=== PATIENT | female | born 1995 | race Hispanic/Latino ===

== ENCOUNTER 2017-10-24 16:07 | Emergency (ER) | payer OTHER ==
[~2017-10-24] VITALS: Ht 154.9 cm; Wt 66.0 kg
[~2017-10-24 16:07] MED LIST: CEPHALEXIN500 MG PO; FERR SULFATE325 MG PO; IBUPROFEN600 MG PO; NORCO1 TA1 PO; PRE-NATAL PO; TYLENOL325 MG PO; [UNRECOGNIZED DRUG - OTHER] EX
[2017-10-24 17:40] LABS: HEMATOCRIT 41.9 % (37.0-47.0); HEMOGLOBIN 14.5 g/dl (12.0-16.0); IMMATURE GRANULOCYTES 0.1 % (0.0-1.0); MEAN CORPUSCULAR HGB 32.9 pG CALC (26.0-32.0); MEAN CORPUSCULAR HGB CONC 34.6 g/L CALC (32.0-36.0); NEUT# 5.27 thou/uL (2.00-7.15); RED BLOOD COUNT 4.41 mill/uL (4.20-5.60); RED CELL DISTRI WIDTH 13.1 % (11.5-15.5)
[2017-10-24 17:43] LABS: URINE BILIRUBIN - DIPSTICK NEGATIVE (NEGATIVE); URINE BLOOD DIPSTICK MODERATE (NEGATIVE); URINE COLOR YELLOW; URINE GLUCOSE - DIPSTICK NEGATIVE (NEGATIVE); URINE KETONE NEGATIVE (NEGATIVE); URINE NITRITE - DIPSTICK NEGATIVE (Negative); URINE PROTEIN - DIPSTICK NEGATIVE (NEG-TRACE); URINE SPECIFIC GRAVITY >=1.030; URINE UROBILINOGEN - DIPSTICK 0.2 E.U./dL (0.2)
[2017-10-24 17:46] LABS: URINE CLARITY HAZY; URINE LEUK ESTERASE SMALL (NEGATIVE)
[2017-10-24 17:55] LABS: URINE SQUAMOUS EPITHELIAL CELL MODERATE EPI/hpf (0-FEW)
[2017-10-24 17:58] LABS: ALBUMIN 4.5 g/dL (3.2-5.0); ALKALINE PHOSPHATASE 138 u/l (38-126); ANION GAP 17 (6-22 (CALC)); BILIRUBIN, TOTAL 0.5 mg/dL (0.0-1.4); BUN 13 mg/dL (7-17); BUN/CREATININE RATIO 18 (12-20 (CALC)); CALCIUM 9.4 mg/dL (8.4-10.2); CARBON DIOXIDE 20 mmol/l (22-30); CHLORIDE 109 mmol/l (95-108); CREATININE 0.7 mg/dL (0.5-1.0); GFR > 60 ML/MIN (>=60 (CALC)); GFR FOR AFR.AMER. > 60 ML/MIN (>=60 (CALC)); GLUCOSE 91 mg/dL (65-105); POTASSIUM 3.6 mmol/l (3.5-5.1); SGOT/AST 29 u/l (14-36); SGPT/ALT 54 u/l (9-52); SODIUM 142 mmol/l (137-146); TOTAL PROTEIN 7.9 g/dL (6.3-8.2)
[2017-10-24] MEDS ORDERED: MACROBID100 MG PO (18:05)
[2017-10-24] MEDS ORDERED: MOTRIN800 MG PO (18:05)
[2017-10-24 19:37] VITALS: BP 116/73
== END 2017-10-24 19:38 | disposition home or self-care (01) | DRG 392 ==
LOC: ED 16:07
PROVIDERS: Emergency Medicine
DX: R10.31 Right lower quadrant pain (principal); N39.0 Urinary tract infection, site not specified

== ENCOUNTER 2017-12-02 12:35 | Emergency (ER) | payer OTHER ==
[~2017-12-02] VITALS: Ht 154.9 cm; Wt 66.4 kg
[~2017-12-02 12:35] MED LIST changes: +MACROBID100 MG PO; +MOTRIN800 MG PO
[2017-12-02 13:37] LABS: URINE BILIRUBIN - DIPSTICK NEGATIVE (NEGATIVE); URINE BLOOD DIPSTICK MODERATE (NEGATIVE); URINE COLOR YELLOW; URINE GLUCOSE - DIPSTICK NEGATIVE (NEGATIVE); URINE KETONE NEGATIVE (NEGATIVE); URINE NITRITE - DIPSTICK NEGATIVE (Negative); URINE PH 5.5 (4.5-8.0); URINE PROTEIN - DIPSTICK 30 mg/dL (NEG-TRACE); URINE SPECIFIC GRAVITY >=1.030; URINE UROBILINOGEN - DIPSTICK 0.2 E.U./dL (0.2)
[2017-12-02 13:38] LABS: URINE LEUK ESTERASE MODERATE (NEGATIVE)
[2017-12-02 13:39] LABS: HEMATOCRIT 41.6 % (37.0-47.0); HEMOGLOBIN 14.5 g/dl (12.0-16.0); IMMATURE GRANULOCYTES 0.2 % (0.0-1.0); MEAN CELL VOLUME 94.8 fL CALC (80.0-100.0); MEAN CORPUSCULAR HGB CONC 34.9 g/L CALC (32.0-36.0); NEUT# 7.95 thou/uL (2.00-7.15); RED BLOOD COUNT 4.39 mill/uL (4.20-5.60); RED CELL DISTRI WIDTH 12.9 % (11.5-15.5)
[2017-12-02 13:41] LABS: URINE BACTERIA FEW hpf; URINE CLARITY CLOUDY; URINE EPITHELIAL CELLS MODERATE EPI/hpf (0-FEW)
[2017-12-02 13:55] LABS: ALBUMIN 4.5 g/dL (3.2-5.0); ALKALINE PHOSPHATASE 150 u/l (38-126); ANION GAP 18 (6-22 (CALC)); BILIRUBIN, TOTAL 0.7 mg/dL (0.0-1.4); BUN 5 mg/dL (7-17); BUN/CREATININE RATIO 8 (12-20 (CALC)); CALCIUM 9.8 mg/dL (8.4-10.2); CARBON DIOXIDE 20 mmol/l (22-30); CHLORIDE 108 mmol/l (95-108); CREATININE 0.6 mg/dL (0.5-1.0); GFR > 60 ML/MIN (>=60 (CALC)); GFR FOR AFR.AMER. > 60 ML/MIN (>=60 (CALC)); GLUCOSE 95 mg/dL (65-105); LIPASE 74 u/l (23-300); POTASSIUM 3.5 mmol/l (3.5-5.1); SGOT/AST 53 u/l (14-36); SGPT/ALT 67 u/l (9-52); SODIUM 142 mmol/l (137-146); TOTAL PROTEIN 8.1 g/dL (6.3-8.2)
[2017-12-02] MEDS ORDERED: MOTRIN400 MG PO (17:24)
[2017-12-02 17:40] VITALS: BP 119/82
== END 2017-12-02 17:40 | disposition home or self-care (01) | DRG 556 ==
LOC: ED 12:35
PROVIDERS: Family Medicine
DX: M25.531 Pain in right wrist (principal); R10.32 Left lower quadrant pain; R10.31 Right lower quadrant pain; M25.512 Pain in left shoulder; M25.532 Pain in left wrist; M25.571 Pain in right ankle and joints of right foot; M54.2 Cervicalgia; M54.5 Low back pain; M79.604 Pain in right leg; M25.552 Pain in left hip; V49.49XA Driver injured in collision with other motor vehicles in traffic accident, initial encounter; Y92.488 Other paved roadways as the place of occurrence of the external cause; Y93.I9 Activity, other involving external motion

== ENCOUNTER 2018-05-19 15:29 | Emergency (ER) | payer BC ==
[~2018-05-19] VITALS: Ht 154.9 cm; Wt 54.0 kg
[~2018-05-19 15:29] MED LIST changes: +MOTRIN400 MG PO
[2018-05-19 16:04] LABS: URINE BILIRUBIN - DIPSTICK NEGATIVE (NEGATIVE); URINE BLOOD DIPSTICK LARGE (NEGATIVE); URINE COLOR YELLOW; URINE GLUCOSE - DIPSTICK NEGATIVE (NEGATIVE); URINE KETONE NEGATIVE (NEGATIVE); URINE NITRITE - DIPSTICK NEGATIVE (Negative); URINE PROTEIN - DIPSTICK NEGATIVE (NEG-TRACE); URINE UROBILINOGEN - DIPSTICK 0.2 E.U./dL (0.2)
[2018-05-19 16:17] LABS: URINE CLARITY CLOUDY; URINE LEUK ESTERASE LARGE (NEGATIVE)
[2018-05-19 16:18] LABS: URINE RBC 25-50 RBC/hpf (0-5)
[2018-05-19 16:19] LABS: URINE BACTERIA MANY hpf; URINE EPITHELIAL CELLS MANY EPI/hpf (0-FEW); URINE WBC 20-50 WBC/hpf (0-5)
[2018-05-19] MEDS ORDERED: KEFLEX500 M1 PO (16:42)
[2018-05-19 16:45] VITALS: BP 135/85
== END 2018-05-19 16:45 | disposition home or self-care (01) | DRG 781 ==
LOC: ED 15:29
DX: O23.41 Unspecified infection of urinary tract in pregnancy, first trimester (principal); Z3A.01 Less than 8 weeks gestation of pregnancy

== ENCOUNTER 2018-07-07 21:15 | Emergency (ER) | payer BC ==
[~2018-07-07] VITALS: Ht 154.9 cm; Wt 70.0 kg
[~2018-07-07 21:15] MED LIST changes: +KEFLEX500 M1 PO
[2018-07-07 21:56] LABS: HEMATOCRIT 36.5 % (37.0-47.0); HEMOGLOBIN 13.2 g/dl (12.0-16.0); IMMATURE GRANULOCYTES 0.3 % (0.0-5.0); MEAN CELL VOLUME 92.6 fL CALC (80.0-100.0); MEAN CORPUSCULAR HGB 33.5 pG CALC (26.0-32.0); MEAN CORPUSCULAR HGB CONC 36.2 g/L CALC (32.0-36.0); NEUT# 6.88 thou/uL (2.00-7.15); RED BLOOD COUNT 3.94 mill/uL (4.20-5.60); RED CELL DISTRI WIDTH 12.5 % (11.5-15.5)
[2018-07-07 22:00] LABS: URINE BILIRUBIN - DIPSTICK NEGATIVE (NEGATIVE); URINE BLOOD DIPSTICK LARGE (NEGATIVE); URINE COLOR YELLOW; URINE GLUCOSE - DIPSTICK NEGATIVE (NEGATIVE); URINE KETONE TRACE mg/dL (NEGATIVE); URINE NITRITE - DIPSTICK NEGATIVE (Negative); URINE PROTEIN - DIPSTICK TRACE mg/dL (NEG-TRACE); URINE SPECIFIC GRAVITY >=1.030; URINE UROBILINOGEN - DIPSTICK 0.2 E.U./dL (0.2)
[2018-07-07 22:12] LABS: URINE LEUK ESTERASE MODERATE (NEGATIVE)
[2018-07-07 22:13] LABS: URINE CLARITY CLOUDY
[2018-07-07 22:14] LABS: ALBUMIN 3.7 g/dL (3.2-5.0); ALKALINE PHOSPHATASE 81 u/l (38-126); ANION GAP 16 (6-22 (CALC)); BILIRUBIN, TOTAL 0.2 mg/dL (0.0-1.4); BUN 8 mg/dL (7-17); BUN/CREATININE RATIO 14 (12-20 (CALC)); CARBON DIOXIDE 21 mmol/l (22-30); CHLORIDE 106 mmol/l (95-108); CREATININE 0.6 mg/dL (0.5-1.0); GFR > 60 ML/MIN (>=60 (CALC)); GFR FOR AFR.AMER. > 60 ML/MIN (>=60 (CALC)); POTASSIUM 3.6 mmol/l (3.5-5.1); SGOT/AST 29 u/l (14-36); SGPT/ALT 45 u/l (9-52); SODIUM 140 mmol/l (137-146)
[2018-07-07 22:22] LABS: URINE RBC TNTC RBC/hpf (0-5); URINE WBC 20-50 WBC/hpf (0-5)
[2018-07-07 22:23] LABS: URINE BACTERIA FEW hpf; URINE EPITHELIAL CELLS FEW EPI/hpf (0-FEW)
[2018-07-07 22:59] LABS: BETA-HCG, QUANT(RESULT NUMBER) 41648 mIU/mL
[2018-07-08] MEDS ORDERED: KEFLEX500 M1 PO (02:22)
[2018-07-08 02:42] VITALS: BP 110/60
== END 2018-07-08 02:30 | disposition home or self-care (01) | DRG 781 ==
LOC: ED 21:15
PROVIDERS: Emergency Medicine
DX: O23.41 Unspecified infection of urinary tract in pregnancy, first trimester (principal); O41.8X10 Other specified disorders of amniotic fluid and membranes, first trimester, not applicable or unspecified; Z3A.11 11 weeks gestation of pregnancy

== ENCOUNTER 2022-05-14 16:40 | Emergency (ER) | payer MEDICAID ==
[~2022-05-14] VITALS: Ht 154.9 cm; Wt 68.0 kg
[2022-05-14 16:59] VITALS: BP 123/82
[2022-05-14 17:12] LABS: URINE BILIRUBIN - DIPSTICK NEGATIVE (NEGATIVE); URINE BLOOD DIPSTICK MODERATE (NEGATIVE); URINE COLOR YELLOW; URINE GLUCOSE - DIPSTICK NEGATIVE (NEGATIVE); URINE KETONE NEGATIVE (NEGATIVE); URINE PH 6.5 (4.5-8.0); URINE PROTEIN - DIPSTICK NEGATIVE (NEG-TRACE); URINE SPECIFIC GRAVITY 1.025
[2022-05-14 17:13] LABS: URINE LEUK ESTERASE SMALL (NEGATIVE); URINE NITRITE - DIPSTICK NEGATIVE (Negative)
[2022-05-14 17:17] LABS: URINE BACTERIA MANY hpf; URINE SQUAMOUS EPITHELIAL CELL MANY EPI/hpf (0-FEW); URINE WBC 20-50 WBC/hpf (0-5)
[2022-05-14 17:21] VITALS: BP 123/82
[2022-05-14] MEDS ORDERED: CEPHALEXIN500 M1 PO (17:56)
== END 2022-05-14 18:31 | disposition home or self-care (01) ==
LOC: ED 16:40
PROVIDERS: Family Medicine
DX: N39.0 Urinary tract infection, site not specified (principal); B96.1 Klebsiella pneumoniae [K. pneumoniae] as the cause of diseases classified elsewhere